=== PATIENT | female | born 1965 | race African-American/Black ===

== ENCOUNTER 2017-11-19 23:37 | Emergency (ER) | payer OTHER ==
[2017-11-20 01:02] VITALS: BP 159/86; PULSE 58; TEMP 98.5; BMI 37.9
--- NOTE | 2017-11-20 02:20 | PDOC ---
History of Present Illness - General Chief Complaint: Pain, Acute Stated Complaint: RT ARM PAIN Time Seen by Provider: 11/20/17 01:46 History Source: Patient - History of Present Illness Initial Comments: 11/20/17 03:28 51 year old female c/o right elbow pain, reports lifting a TV 7 days ago, holding much weight of the TV to the Elbow. + localized tenderness. full rom. ad bruising noted at the elbow. Past History - Past Medical History Allergies/Adverse Reactions: Allergies Allergy/AdvReac Type Severity Reaction Status Date / Time No Known Allergies Allergy Verified 11/20/17 00:38 Home Medications: Ambulatory Orders Ibuprofen 600 mg PO QID PRN #20 tablet 11/20/17 - Suicide/Smoking/Psychosocial Hx Smoking History: Never smoked Have you smoked in the past 12 months: No Information on smoking cessation initiated: No Hx Alcohol Use: No Drug/Substance Use Hx: No Review of Systems - Review of Systems Able to Perform ROS?: Yes Is the patient limited Spanish proficient: No Constitutional: No: Symptoms Reported, See HPI, Chills, Diaphoresis, Fever, Loss of Appetite, Malaise, Night Sweats, Weakness, Weight Stable, Unintentional Wgt. Loss, Unexplained wgt Loss, Other Musculoskeletal: Yes: Other (left elbow pain). No: Symptoms Reported, See HPI, Back Pain, Gout, Joint Pain, Joint Swelling, Muscle Pain, Muscle Weakness, Neck Pain, Joint Stiffness *Physical Exam - Vital Signs Last Vital Signs Temp Pulse Resp BP Pulse Ox 98.5 F 58 L 14 159/86 99 11/20/17 00:38 11/20/17 00:38 11/20/17 00:38 11/20/17 00:38 11/20/17 00:38 - Physical Exam General Appearance: Yes: Appropriately Dressed. No: Nourished, Apparent Distress, Disheveled, Mild Distress, Moderate Distress, Severe Distress, Alcohol on Breath, Intoxicated, Cachetic, Obese, Thin, Other Musculoskeletal: positive: Normal Inspection, Other (full rom + localized tenderness at the left elbow. ). negative: CVA Tenderness, CVA Tenderness (R), CVA Tenderness (L), Decreased Range of Motion, Muscle Spasm, Vertebral Tenderness Extremity: positive: Normal Capillary Refill, Normal Inspection, Normal Range of Motion. negative: Tender, Pelvis Stable, Coldness, Cyanosis, Delayed Capillary Refill, Pedal Edema, Swelling, Calf Tenderness, Erythema, Inflammation , Other Neurologic: positive: Fully Oriented, Alert Progress Note - Progress Note Progress Note: Left elbow pain likely muscular pain P: xray: negative NSAIDS close pmd follow up *DC/Admit/Observation/Transfer Diagnosis at time of Disposition: Pain in left elbow - Discharge Dispostion Disposition: HOME - Prescriptions Prescriptions: Ibuprofen 600 mg PO QID PRN #20 tablet PRN Reason: Pain - Referrals - Patient Instructions Printed Discharge Instructions: DI for Elbow Pain Additional Instructions: apply ice / heat to the area. take ibuprofen as soon as possible. start light stretches. - Post Discharge Activity
[2017-11-20] MEDS ORDERED: KETOROLAC TROMETHAMINE 30 MG/1 ML VIAL IM ONE (02:21)
[2017-11-20] MEDS ORDERED: KETOROLAC TROMETHAMINE 30 MG/1 ML VIAL ONE (03:01)
== END 2017-11-20 04:08 | disposition home or self-care (01) ==
LOC: JER 23:37
PROC: 3E0233Z Introduction of Anti-inflammatory into Muscle, Percutaneous Approach (ICD-10-PCS; principal; 2017-11-19)
DX: M25.522 Pain in left elbow (principal)
CPT/HCPCS: 73070-TC-RT; 96372; 99281-25